=== PATIENT | male | born 1930 | race Caucasian/White ===

== ENCOUNTER 2016-10-17 14:26 | Emergency (ER) | payer MEDICARE, OTHER ==
[~2016-10-17] VITALS: Ht 175.3 cm; Wt 90.0 kg
[~2016-10-17 14:26] MED LIST: ASPI81TA82 PO; CITA10TA4 PO; LORA0.5T PO; METH750T2 PO; METO100T9 PO; TRAM100T19 PO
--- NOTE | 2016-10-17 14:36 | PD ---
HPI . right hip pain for 3 days Chief Complaint: right hip pain Time Seen by Provider: 14:36 Travel History International Travel<30 days: No Contact w/Intl Traveler<30days: No Traveled to known affect area: No History of Present Illness HPI 86-year-old male with history of hypothyroidism, GERD and osteoarthritis here with complaints of right hip pain. Patient says for about 3-4 days he's been experiencing some severe right hip pain. He tells me that he has been using his legs from omentum to get up and he thinks he may have pulled a muscle. He reports severe 10/10 pain with movement of the right hip without further radiation.. At rest the pain is negligible. He is concerned because the pain is not improving. He denies any trauma to the area. He denies any recent falls or other injuries. He has no other complaints at this time. [facility] Past Medical History Anxiety: Yes Hypertension: Yes Past Surgical History Cholecystectomy: Yes Other Surgery: Yes (Hernia, BL rotator cuff) Social History Alcohol Use: Yes (Rare) Tobacco Use: No Substance Use: No Allergies-Medications (Allergen,Severity, Reaction): Coded Allergies: No Known Allergies (Unverified , 04/08/15) Reported Meds & Prescriptions Reported Meds & Active Scripts Active Robaxin (Methocarbamol) 500 Mg Tab 500 Mg PO HS Methocarbamol 750 Mg Tab 750 Mg PO QID Reported Tramadol HCl ER (Tramadol HCl) 100 Mg Tab 100 Mg PO BID Aspir-81 (Aspirin) 81 Mg Tab 81 Mg PO DAILY Lorazepam 0.5 Mg Tab 0.5 Mg PO BID PRN Citalopram Hydrobromide 10 Mg Tab 10 Mg PO DAILY Metoprolol Succinate ER 100 mg (Metoprolol Succinate) 100 Mg Tab 100 Mg PO BID Review of Systems General / Constitutional: No: Fever Eyes: No: Visual changes HENT: No: Headaches Cardiovascular: No: Chest Pain or Discomfort Respiratory: No: Shortness of Breath Gastrointestinal: No: Abdominal Pain Genitourinary: No: Dysuria Musculoskeletal: Positive: Pain (right hip) Skin: No Rash Neurologic: No: Weakness Psychiatric: No: Depression Endocrine: No: Polydipsia Hematologic/Lymphatic: No: Easy Bruising Physical Exam Narrative GENERAL: AAO x 3, no acute distress, Well-nourished, well-developed patient. SKIN: Warm and dry. No visible rashes or bruising. HEAD: Normocephalic and atraumatic. EYES: No scleral icterus. No injection or drainage. EOM intact, PERRLA ENT: No nasal drainage noted. Mucous membranes pink. Airway patent. NECK: Supple, trachea midline. No JVD. CARDIOVASCULAR: Regular rate and rhythm without murmurs, gallops, or rubs. RESPIRATORY: Breath sounds equal bilaterally. No accessory muscle use. No rhonchi or rales. GASTROINTESTINAL: Abdomen soft, non-tender, nondistended. EXTREMITIES: No cyanosis or edema. Right hip pain with any movement of the right lower extremity, no pain on palpation of the right femur, knee, tib-fib, ankle or foot. Left lower extremity unremarkable BACK: Nontender without obvious deformity. No CVA tenderness. Straight leg raise positive on the right side with 15 NEURO: CN II-12 intact, cherry pitter strength normal b/l, UE and LE 5/5, no focal deficits PSYCH: AAO x 3, normal affect. Data Data Last Documented VS Vital Signs Date Time Temp Pulse Resp B/P Pulse Ox O2 Delivery O2 Flow Rate FiO2 10/17/16 14:38 99.0 75 16 171/80 96 Orders Hip, Uni(Ap&Lat) W Ap Pelvis (10/17/16 14:40) MDM Medical Decision Making Medical Screen Exam Complete: Yes Emergency Medical Condition: Yes Medical Record Reviewed: Yes Differential Diagnosis Osteoarthritis, rheumatoid arthritis, sciatica, muscle strain, hip fracture, pelvis fracture Narrative Course 86-year-old male here with complaints of right hip pain. He does have significant pain with any movement of his right hip. X-ray has been ordered. I do not suspect it will have any bony abn. I suspect some sciatica in this instance. Last Impressions Hip and Pelvis X-Ray 10/17/16 1440 Signed Impressions: Service Date/Time: Monday, October 17, 2016 14:56 - CONCLUSION: 1. No acute findings. Mild osteoarthritis at the hips bilaterally. Jonh Fuentes MD Discussed x-ray findings with patient and family who is at bedside. I explained that this is more than likely sciatica. I've explained the process and family and patient are in agreement. I recommend a short course of muscle relaxers. I discussed the side effects and recommend not to mix with his pain medications. He will ultimately need to follow-up with his primary care provider may need to consider outpatient physical therapy. Patient verbalized understanding of instructions, questions were answered, and thanked me for their care. I advised them if their condition worsens, please return to the nearest emergency room for further care. Diagnosis Primary Impression: Muscle strain Additional Impressions: Right hip pain Sciatica Qualified Code: M54.31 - Sciatica of right side Patient Instructions: General Instructions, Sciatica (ED) Additional Instructions: Muscle relaxers can cause drowsiness. Do not drive, swim or operate heavy machinery while using these medications. Do not take the muscle relaxer at the same time as your pain medication. Please return to emergency department if your symptoms return or worsen. Follow up with your primary care provider. Take medications as prescribed. Med/Other Pt SpecificInfo: Prescription(s) given Scripts Methocarbamol (Robaxin)500 Mg [id number] Mg PO HS #10 TAB Prov:Saul Aponte MD 10/17/16 Disposition: 01 DISCHARGE HOME Condition: Stable Ila Lainez Oct 17, 2016 14:36
[2016-10-17 14:38] VITALS: BP 171/80; PULSE 75; RESP 16; TEMP 99; O2SAT 96
--- NOTE | 2016-10-17 15:23 | RADRPT ---
EXAM DATE/TIME: 10/17/2016 14:56 [facility] COMPARISON: No previous studies available for comparison. INDICATIONS : Right hip pain after aptient was getting out of bed today MEDICAL HISTORY : None. SURGICAL HISTORY : None. ENCOUNTER: Initial ACUITY: 1 day PAIN SCORE: 10/10 LOCATION: Right entire hip FINDINGS: Examination of the right hip was performed with AP Pelvis. 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 The hip joint is of normal width without significant sclerosis or bony hypertrophy. The acetabulum is grossly intact. CONCLUSION: 1. No acute findings. Mild osteoarthritis at the hips bilaterally. John Fuentes MD on October 17, 2016 at 15:19 Board Certified Radiologist. This report was verified electronically.
[2016-10-17] MEDS ORDERED: ROBA500T PO (15:59)
[2016-10-17] MEDS ORDERED: KETOROLAC TROMETHAMINE 60 MG/2 ML (IM) VIAL IM ONE (16:30)
[2016-10-17 17:02] VITALS: BP 132/62
== END 2016-10-17 17:03 | disposition home or self-care (01) ==
LOC: NEPC 14:26
DX: S76.011A Strain of muscle, fascia and tendon of right hip, initial encounter (principal); M25.551 Pain in right hip; M54.31 Sciatica, right side; E03.9 Hypothyroidism, unspecified; I10 Essential (primary) hypertension; Z87.19 Personal history of other diseases of the digestive system; Z87.39 Personal history of other diseases of the musculoskeletal system and connective tissue; Z86.59 Personal history of other mental and behavioral disorders; X58.XXXA Exposure to other specified factors, initial encounter
CPT/HCPCS: 73502; 96372; 99284; J1885